=== PATIENT | female | born 1945 | race Caucasian/White ===

== ENCOUNTER 2017-11-22 07:34 | Outpatient (CLI) | payer OTHER ==
[~2017-11-22] VITALS: Ht 149.9 cm; Wt 93.4 kg
[2017-11-22] VITALS (10 sets, daily range): BP systolic 109–149; BP diastolic 57–78
[~2017-11-22 07:34] MED LIST: ASPIR 8181 MG PO; B12INJ PO; COMBIGAN EYE DR10 ML OP; COMBIGAN EYE DR10 ML OPHTHALMIC; EFFIENT10 MG PO; HYDRALAZINE 2525 M1 PO; IMDUR 30 MG TAB30 M1 PO; KLOR-CON 1010 MEQ PO; LASIX 20 MG TAB20 MG PO; LISINOPRIL-HCT1 EACH PO; LOPRESSOR25 PO; LUMIGAN2.5 M1 OP; NITROGLYCERIN0.4 MG SUBLING; PLAVIX 75 MG TA75 M1 PO; PRALUENT P75 MG/1 ML SQ; PROZAC20 MG PO; RANEXA500 MG PO; TOPROL XL25 MG PO; TRAMADOL 50 MG50 MG PO; VITAMIN D3400 UNIT PO
[2017-11-22 08:08] LABS: HEMATOCRIT 37.1 % (37.0-47.0); HEMOGLOBIN 12.5 gm/dL (12.0-15.0); MCH 28.9 pg (26.0-34.0); MCHC 33.6 g/dL (28.0-37.0); MPV 9.2 fl. (7.2-11.1); RBC 4.31 mil/uL (4.20-5.00); RDW-CV 15.1 % (10.5-14.5); WBC 8.3 thou/uL (4.0-11.0)
[2017-11-22 08:14] LABS: ANION GAP 9 mmol/L (7-16); BUN 19 mg/dL (7-18); CALCIUM 8.9 mg/dL (8.5-10.1); CHLORIDE 96 mmol/L (98-107); CO2 30 mmol/L (21-32); GLUCOSE 200 mg/dL (70-99); POTASSIUM 3.2 mmol/L (3.5-5.1); SODIUM 135 mmol/L (136-145)
[2017-11-22 08:25] LABS: ALBUMIN 3.6 g/dL (3.4-5.0); ALKALINE PHOSPHATASE 67 U/L (46-116); CHOLESTEROL 149 mg/dL (<200); HDL CHOLESTEROL 86 mg/dL (>40); LDL CHOLESTEROL 56 mg/dL (<100); SGOT 14 U/L (15-37); SGPT 18 U/L (30-65); TC:HDL 1.7 Ratio (Not establshd); TOTAL BILIRUBIN 0.4 mg/dL (<0.1-1.0); TOTAL PROTEIN 7.5 g/dL (6.4-8.2); TRIGLYCERIDE 35 mg/dL (<150); VLDL 7 mg/dL (<40)
[2017-11-22 08:30] LABS: SERUM ASSESSMENT Clear
--- NOTE | 2017-11-22 16:20 | EKG ---
[place] [address] ELECTROCARDIOGRAM REPORT Name: MAN SOMMERS Room: [address]#: [id number] Admission: 11/22/17 Attend Phys: Christo Abarca MD, Discharge: Date of : 47 Report #: [id number] THIS REPORT FOR: //name// [facility] Test Date: 2017-11-22 Test Time: 09:04:10 Pat Name: MAN SOMMERS Department: Room: Gender: F Destination Specialist: : 1945 Requested By: Christo Abarca Order Number: [id number] Zeeshan MD: Christo Abarca Measurements Intervals [place] Rate: 56 P: -26 AL: 134 QRS: 50 QRSD: 104 T: 66 QT: 446 QTc: 431 Interpretive Statements Sinus rhythm Nonspecific T abnrm, anterolateral leads Compared to ECG 10/17/2016 09:30:18 T-wave abnormality no longer present ST (T wave) deviation no longer present Electronically Signed On 11-22-2017 16:19:53 CDT by Christo Abarca [email or web address] <ELECTRONICALLY SIGNED> By: Christo Abarca MD, [facility] 11/22/17 1619 0904 0904 Christo Abarca MD, [facility] /EPI
--- NOTE | 2017-11-25 12:16 | CARD ---
[address] [address] CARDIAC CATH REPORT Name: MAN SOMMERS López Room: [address]PaulJose#: [id number] Admission: 11/22/17 Attend Phys: Christo Abarca MD, Discharge: Date of : 47 Report #: [id number] THIS REPORT FOR: //name// APPROVED REPORT Study performed: 11/22/2017 08:18:43 Patient Details Patient Status: Out-Patient Room #: The patient is a 72 year-old female Event Personnel Christo Abarca Fire Control Technician G, Lorna Friedman RN Electric Wirer, Josie Syed Monitor, Jonatan Urena (R) Scrub Procedures Performed Art Access - R femoral artery* , Selective Right and Left Coronary Angiography, Left Ventriculogram left heart catheterization Indication Unstable angina Risk Factors Family History, Hypercholesterolemia, Hypertension Previous Procedures/Diagnoses Previous PCI Procedure Narrative The patient was brought electively to the Cardiac Catheterization Laboratory and was prepped and draped in a sterile manner. The right femoral was infiltrated with subcutaneous anesthesia. A Cuthbert 6 FR sheath was inserted into the right femoral artery. Coronary angiography was performed using coronary diagnostic catheters. The right coronary system was accessed and visualized with a Diagnostic 6fr JR 4 catheter. The left coronary system was accessed and visualized with a Diagnostic 6fr JL 4 catheter. The left ventricle was accessed and visualized with a Diagnostic pigtail 6 fr catheter. Left ventricular/Aortic Valve gradient assessed via catheter pullback. Left ventriculogram was performed in KEATING projection. Pre-demployment femoral angiogram was performed . Closure device was deployed with a 6 Fr Mynx. The patient tolerated the procedure well and there were no complications associated with the procedure. There [place] [address] CARDIAC CATH REPORT Name: SOMMERSMAN Room: [address]#: [id number] Admission: 11/22/17 Attend Phys: Christo Abarca MD, Discharge: Date of : 47 Report #: [id number] Intraoperative Conscious Sedation Sedation start time: 9:25 Case end Time: 9:49 Fentanyl 50 mcg Versed 2 mg Fluoro Time: 2.6 minutes Dose: DAP 33336 cGycm2 489.09 mGy Contrast Type and Amount: Visipaque 110 ml Coronary Angiography The patient's coronary anatomy is co- dominant. Diagnostic Cath Left Main 0% narrowing LAD 30% proximal and mid LAD narrowing with 30% narrowing of the first diagonal branch Circumflex 30% proximal narrowing with widely patent mid circumflex and first marginal branch stents Right Coronary Widely patent proximal stent with 30% mid and distal narrowings Left Ventriculography The left ventricle is normal in size with normal contractility. The left ventricular ejection fraction is estimated to be 65-70%. Left ventricular wall motion abnormalities are not present. There is no mitral insufficiency. Hemodynamics The aortic pressure is 153/55 mmHg with a mean of mmHg. The left ventricular pressure is 172/5 mmHg with a mean of mmHg. The left ventricular end diastolic pressure is 15 mmHg. There was no gradient across the aortic valve upon pullback. Conclusion #1 coronary artery disease characterized by the following: A 30% proximal and mid LAD narrowing with 30% narrowing of the first diagonal branch B 30% proximal circumflex narrowing with widely patent mid circumflex and first marginal branch stents C modest size codominant right coronary artery with a widely patent proximal stent and 30% mid [place] [address] CARDIAC CATH REPORT Name: SOMMERSMAN Room: [address]#: [id number] Admission: 11/22/17 Attend Phys: Christo Abarca MD, Discharge: Date of : 47 Report #: [id number] #2 moderate systemic systolic hypertension with minimal elevation of left ventricular end-diastolic pressure at rest #3 normal left ventricular systolic function, estimated ejection fraction being 65-70%. Recommendations Cardiac Risk Reduction Program Aggressive Medical Therapy Diagnostic Cath Approved by: Christo Abarca MD Date/Time: 11/25/17 at 1215 hrs. <ELECTRONICALLY SIGNED> By: Christo Abarca MD, [facility] 11/25/17 1216 1216 1216Joniko Abarca MD, FACC /INF
== END 2017-11-22 14:30 ==
LOC: M.CL 07:34 → M.TBA-CV 10:01 → M.CL 14:30
PROVIDERS: Internal Medicine
DX: I25.10 Atherosclerotic heart disease of native coronary artery without angina pectoris (principal); I10 Essential (primary) hypertension; E11.9 Type 2 diabetes mellitus without complications; E78.00 Pure hypercholesterolemia, unspecified; I73.89 Other specified peripheral vascular diseases; J45.909 Unspecified asthma, uncomplicated; H40.9 Unspecified glaucoma; Z98.49 Cataract extraction status, unspecified eye; Z90.49 Acquired absence of other specified parts of digestive tract; Z90.710 Acquired absence of both cervix and uterus; Z82.49 Family history of ischemic heart disease and other diseases of the circulatory system; Z91.040 Latex allergy status; Z91.041 Radiographic dye allergy status; Z88.6 Allergy status to analgesic agent; Z79.82 Long term (current) use of aspirin; Z79.899 Other long term (current) drug therapy; Z79.01 Long term (current) use of anticoagulants

== ENCOUNTER → 2018-01-09 | Outpatient (CLI) | payer OTHER ==
[2018-01-09 12:35] LABS: CHOLESTEROL 138 mg/dL (<200); HDL CHOLESTEROL 69 mg/dL (>40); LDL CHOLESTEROL 59 mg/dL (<100); TRIGLYCERIDE 54 mg/dL (<150); VLDL 11 mg/dL (<40)
[2018-01-09 12:36] LABS: SERUM ASSESSMENT Clear
== END ==
LOC: M.LAB 11:33
PROVIDERS: Internal Medicine
DX: E78.5 Hyperlipidemia, unspecified (principal); I25.10 Atherosclerotic heart disease of native coronary artery without angina pectoris; I10 Essential (primary) hypertension; I73.9 Peripheral vascular disease, unspecified; I71.4 Abdominal aortic aneurysm, without rupture

== ENCOUNTER → 2020-01-08 | Outpatient (CLI) | payer OTHER ==
[~2020-01-08] VITALS: Ht 152.4 cm; Wt 95.3 kg
[2020-01-08 09:33] LABS: HEMOGLOBIN 11.7 gm/dL (12.0-15.0); MCH 28.7 pg (26.0-34.0); MCHC 33.3 g/dL (28.0-37.0); MCV 86.2 fL (80.0-100.0); MPV 9.2 fl. (7.2-11.1); RBC 4.06 mil/uL (4.20-5.00); WBC 8.5 thou/uL (4.0-11.0)
[2020-01-08 09:44] LABS: ANION GAP 10 mmol/L (7-16); BUN 14 mg/dL (7-18); CALCIUM 8.3 mg/dL (8.5-10.1); CHLORIDE 99 mmol/L (98-107); CO2 28 mmol/L (21-32); CREATININE 1.1 mg/dL (0.6-1.3); GLUCOSE 186 mg/dL (70-99); POTASSIUM 3.3 mmol/L (3.5-5.1); SODIUM 137 mmol/L (136-145)
[2020-01-08 09:46] LABS: APTT 25.7 Seconds (25.0-31.3); PROTIME 10.5 Seconds (9.20-11.50)
[2020-01-08 09:49] LABS: ALBUMIN 3.5 g/dL (3.4-5.0); ALKALINE PHOSPHATASE 68 U/L (46-116); CHOLESTEROL 125 mg/dL (<200); HDL CHOLESTEROL 71 mg/dL (>40); LDL CHOLESTEROL 49 mg/dL (<100); SGOT 17 U/L (15-37); SGPT 19 U/L (30-65); TC:HDL 1.8 Ratio (Not establshd); TOTAL BILIRUBIN 0.7 mg/dL (<0.1-1.0); TOTAL PROTEIN 7.7 g/dL (6.4-8.2); TRIGLYCERIDE 28 mg/dL (<150); VLDL 6 mg/dL (<40)
[2020-01-08 09:52] LABS: SERUM ASSESSMENT Clear
--- NOTE | 2020-01-08 16:38 | EKG ---
[place] [address] ELECTROCARDIOGRAM REPORT Name: MAN SOMMERS Room: [facility]#: [id number] Admission: 01/08/20 Attend Phys: Keith Haq Discharge: Date of : 47 Date of Service: 01/08/20 0934 Report #: [id number] THIS REPORT FOR: //name// [facility] Test Date: 2020-01-08 Test Time: 09:34:44 Pat Name: MAN SOMMERS Department: Room: Gender: F Car Shifter: : 1945 Requested By: Christo Abarca Order Number: [id number] Reading MD: Tyler Mancera Measurements Intervals [place] Rate: 74 P: 17 [place]: 119 QRS: 51 QRSD: 124 T: 107 QT: 425 QTc: 472 Interpretive Statements Sinus rhythm Borderline short [place] interval Nonspecific intraventricular conduction delay Abnormal inferior Q waves Nonspecific T abnrm, anterolateral leads Baseline wander in lead(s) II Compared to ECG 11/22/2017 09:04:10 Intraventricular conduction delay now present Inferior Q waves now present Q waves now present Electronically Signed On 01-08-2020 16:36:46 CDT by Tyler Mancera [email or web address] <ELECTRONICALLY SIGNED> By: Tyler Mancera MD, FAC 01/08/20 1636 0934 Tyler Mancera MD, [facility] /EPI
--- NOTE | 2020-01-08 17:14 | H ---
[place] [address] HISTORY AND PHYSICAL Name: MAN SOMMERS López Room: [facility]#: [id number] Admission: 01/08/20 Attend Phys: Christo Abarca MD, Discharge: Date of : 47 Report #: [id number] THIS REPORT FOR: //name// cc: Agustin Bell MD, Ram MD ~ THIS REPORT FOR: //name// CC: Christo Bell DATE OF SERVICE: 01/08/2020 HISTORY OF PRESENT ILLNESS: The patient is a pleasant 74-year-old female with complex coronary artery disease. She has a history of multivessel stenting. Of late, she has noted episodes of chest discomfort radiating up into the jaw similar to her prior ischemic discomfort. Episodes typically occur when she climbs a flight of steps or carry something. Occasionally, she has nocturnal pain. She takes sublingual nitroglycerin if required. The pain often remits without nitrates. Recently, there has been an increase in frequency and severity of episodes. She denies accompanying shortness of breath, nausea or diaphoresis. The patient has underlying hypertension, hyperlipidemia and weight excess. She is compliant with dual antiplatelet therapy, long-acting mononitrate antihypertensive and PCSK9 inhibition without side effects. MEDICATIONS: Include amlodipine 5 mg daily, aspirin 81 mg daily, clopidogrel 75 mg daily, evolocumab 140 mg every 2 weeks, Prozac 40 mg daily, hydrochlorothiazide 25 mg daily, Imdur 60 mg daily, lisinopril 20 mg daily, metoprolol tartrate 50 mg b.i.d. PAST MEDICAL HISTORY: Remarkable for abdominal aortic aneurysm, hypertension, hyperlipidemia and obesity as well as type 2 diabetes. SOCIAL HISTORY: She is . She is a nonsmoker. REVIEW OF SYSTEMS: Remarkable for the following. GENERAL: She notes chronic moderate weight excess. MUSCULOSKELETAL: There are chronic modest arthritic complaints. PHYSICAL EXAMINATION: GENERAL: Demonstrates an elderly female in no acute distress. VITAL SIGNS: Blood pressure is 145/60, pulse rate is 72, respirations are 18 [place] [address] HISTORY AND PHYSICAL Name: MAN SOMMERS López Room: [facility]#: [id number] Admission: 01/08/20 Attend Phys: Christo Abarca MD, Discharge: Date of : 47 Report #: [id number] NECK: Jugular venous pressure is normal. CHEST: Clear. CARDIAC: Reveals normal first and second heart sounds without murmurs or gallops. ABDOMEN: Soft and nontender, mildly obese. EXTREMITIES: Revealed mild bilateral ankle edema with intact femoral, pedal and radial pulses. IMPRESSION: 1. Angina pectoris following a pattern of clinical instability. 2. Coronary artery disease. 3. Hypertension. 4. Hypercholesterolemia. 5. Type 2 diabetes. 6. Weight excess. RECOMMENDATIONS: Given the recent clinical scenario and known coronary artery disease with risk factor profile outlined above, I would recommend proceeding with cardiac catheterization to define current coronary anatomy and prospects for subsequent therapeutic modification. Procedure and risks have been discussed with the patient. <ELECTRONICALLY SIGNED> By: Christo Abarca MD, [facility] 01/08/20 1714 1252 1318Christo Abarca MD, FAC /nt
--- NOTE | 2020-01-09 12:32 | CARD ---
[address] [address] CARDIAC CATH REPORT Name: MAN SOMMERS [id number] Admission: 01/08/20 Attend Phys: Christo Abarca MD, Discharge: Date of : 47 Report #: [id number] THIS REPORT FOR: //name// cc: Agustin Bell MD, Ram MD ~ APPROVED REPORT Study performed: 01/08/2020 11:04:34 Patient Details The patient is a 74 year-old female Event Personnel Lyle Perry RTR Monitor, Sabino Vázquez RN RN, Genoveva Woods RTR Scrub, Christo Abarca Ela Teacher, Wyatt Mistry HURRICANE TRACKER Monitor, Lorna Friedman RN RN, Lyle Perry RTR Scrub Procedures Performed Left heart catheterization left ventriculography and selective coronary arteriography Indication Unstable angina Risk Factors Obesity, Hypercholesterolemia, Hypertension Previous Procedures/Diagnoses Previous PCI Admission/Lab Medications/Medications given during procedure Heparin Unfract. Procedure Narrative The patient was brought electively to the Cardiac Catheterization Laboratory and was prepped and draped in a sterile manner. The right wrist, right femoral was infiltrated with 1% Lidocaine subcutaneous anesthesia. A Slender Glidesheath sheath was inserted into the right radial artery. Coronary angiography was performed using coronary diagnostic catheters. The right coronary system was accessed and visualized with a JR4 5fr - Diagnostic via RRA catheter. The left coronary system was accessed and visualized with a JR4 6Fr - Diagnostic via RFA catheter. The left ventricle was accessed and visualized with a Str PIG 6Fr - Diagnostic catheter. Left ventricular/Aortic Valve gradient assessed [place] [address] CARDIAC CATH REPORT Name: MAN SOMMERS Room: [facility]#: [id number] Admission: 01/08/20 Attend Phys: Christo Abarca MD, Discharge: Date of : 47 Report #: [id number] Pre-demployment femoral angiogram was performed . Closure device was deployed with a Fr MynxGrip 6/7F to the RFA by Dr Cedeno. Hemostasis was obtained with manual pressure following sheath removal without any complications. The patient tolerated the procedure well and there were no complications associated with the procedure. RFA was initially unable to be accessed after multiple attempts. RRA was accessed and the RCA was vizualized. Unable to visulize the LCA after multiple catheters in the context of marked tortuosity of the innominate artery as it entered the aortic arch. Ultrasound guidance was utilized to access the RFA. LCA visulized with JL4. Str PIG accessed the LV for pressures and LV Gram. Rad Stat Band to the right wrist. Mynx to the RFA. Intraoperative Conscious Sedation Sedation start time: 1152 Case end Time: 1412 Fentanyl 50 mcg Versed 2 mg Fluoro Time: 31.3 minutes Dose: DAP 283713 cGycm2 1775 mGy Contrast Type and Amount: Visipaque 370 ml Coronary Angiography The patient's coronary anatomy is co- dominant. Diagnostic Cath Left Main 0% narrowing LAD 30% proximal LAD narrowing with tortuosity and 50% distal LAD stenosis Circumflex Prominent codominant vessel with 60% irregular proximal narrowing and a widely patent stent in the prominent first marginal branch Right Coronary Moderate size codominant vessel with a widely patent proximal stent and 40% mid vessel narrowing Left Ventriculography The left ventricle is normal in size with normal contractility. The left ventricular ejection fraction is estimated to be 65-70%. Left ventricular wall motion abnormalities are not present. There is no mitral insufficiency. Hemodynamics The aortic pressure is 162/58 mmHg with a mean of 103 mmHg. The left ventricular pressure is 174/0 mmHg with a mean of mmHg. The left ventricular end diastolic pressure is 22 mmHg. There was no gradient across the aortic [place] [address] CARDIAC CATH REPORT Name: MAN SOMMERS Room: [facility]#: [id number] Admission: 01/08/20 Attend Phys: Christo Abarca MD, Discharge: Date of : 47 Report #: [id number] Conclusion 1. Moderate coronary artery characterized by the following: A 30% proximal LAD narrowing with tortuosity and 50% distal LAD narrowing B 60% irregular stenosis of the proximal circumflex with a widely patent first marginal stent C modest size codominant right coronary artery with a widely patent proximal stent and 40% mid vessel narrowing 2. Normal left ventricular systolic function, estimated ejection fraction 65-70% 3. Moderate systemic systolic hypertension with modest elevation of left ventricular end-diastolic pressure at rest <ELECTRONICALLY SIGNED> By: Christo Abarca MD, FACC 01/09/20 1230 1230 1230Joniko Abarca MD, FAC /INF
== END | disposition home or self-care (01) ==
LOC: M.CL 08:51
PROVIDERS: Internal Medicine
DX: I25.110 Atherosclerotic heart disease of native coronary artery with unstable angina pectoris (principal); I10 Essential (primary) hypertension; E78.00 Pure hypercholesterolemia, unspecified; E11.9 Type 2 diabetes mellitus without complications; H40.9 Unspecified glaucoma; J45.909 Unspecified asthma, uncomplicated; Z90.49 Acquired absence of other specified parts of digestive tract; Z98.890 Other specified postprocedural states; Z79.899 Other long term (current) drug therapy; Z91.041 Radiographic dye allergy status; Z79.82 Long term (current) use of aspirin